=== PATIENT | female | born 1990 | race Two or more races ===

== ENCOUNTER 2020-11-30 21:30 | Emergency (ER) | payer OTHER ==
[~2020-11-30] VITALS: Ht 165.1 cm; Wt 68.0 kg
[2020-11-30 23:41] LABS: Basophils # (auto) 0 10 ^3/uL (0-0.2); Basophils % (auto) 0.2 % (0.0-2.0); Eosinophils # (auto) 0 10 ^3/uL (0-0.8); Eosinophils % (auto) 0.2 % (0.0-7.0); Hematocrit 41.5 % (36.0-46.0); Hemoglobin 13.8 g/dL (12.2-16.2); Lymphocytes # (auto) 1.4 10 ^3/uL (0.4-5.4); Lymphocytes % (auto) 8.1 % (10.0-50.0); Mean Corpuscular Hemoglobin 29.6 pg (28.0-32.0); Mean Corpuscular Hgb Conc. 33.3 g/dL (32.0-36.0); Mean Corpuscular Volume 88.9 fL (80.0-100.0); Monocytes # (auto) 0.8 10 ^3/uL (0-1.3); Monocytes % (auto) 4.9 % (0.0-12.0); Neutrophils # (auto) 14.9 10 ^3/uL (1.6-8.6); Neutrophils % (auto) 86.6 % (37.0-80.0); Platelet Count (auto) 342 10^3/uL (140-450); Red Blood Cells 4.67 10^6/uL (4.0-5.20); Red Cell Distribution Width 13.5 % (11.8-14.3); White Blood Cell 17.2 10^3/uL (4.4-10.8)
[2020-11-30 23:57] LABS: Calcium 8.9 mg/dL (8.5-10.1); Potassium 3.4 mmol/L (3.5-5.1)
[2020-12-01 00:02] LABS: BUN/Creatinine Ratio 14.4; Bilirubin, Total 0.7 mg/dL (0.2-1.0); Total Protein 8.3 g/dL (6.4-8.2)
[2020-12-01 00:05] LABS: Lactic Acid w/Reflex 3.3 mmol/L (0.4-2.0)
[2020-12-01 02:17] LABS: Urine Bacteria FEW /hpf (None Seen); Urine Blood Negative /uL (Negative); Urine Mucus FEW (None Seen); Urine Specific Gravity 1.031 (1.001-1.035); Urine WBC 5 /hpf (0 - 5)
[2020-12-01] MEDS ORDERED: SODIUM CHLORIDE 0.9% 1,000 ML IV ONE (02:30)
[2020-12-01 05:03] LABS: Lactic Acid w/Reflex 2.9 mmol/L (0.4-2.0)
[2020-12-01] MEDS ORDERED: IOHEXOL 300 MG/ML 100ML BOTTLE IJ ONE (05:20)
[2020-12-01] MEDS ORDERED: PANTOPRAZOLE 40 MG/10 ML VIAL INJ IV ONE (07:15)
[2020-12-01 07:56] LABS: Albumin 3.4 g/dL (3.4-5.0); Bilirubin, Direct 0.7 mg/dL (0-0.2)
[2020-12-01 07:59] LABS: Bilirubin, Total 1.1 mg/dL (0.2-1.0)
[2020-12-01] MEDS ORDERED: cefTRIAXone 1GM/50ML D5W 50 ML IV ONE (11:00)
[2020-12-01 16:00] VITALS: BP 118/93
== END 2020-12-01 16:58 | disposition left against medical advice (07) ==
LOC: EDBD 21:30 → ER 21:34
DX: R10.13 Epigastric pain (principal); R11.2 Nausea with vomiting, unspecified
CPT/HCPCS: 36415; 74177; 76705; 80053; 80076; 81001; 82150; 83605; 83690; 84702; 85025; 85049; 96361; 96365; 96375; 99285; C9113; J0696; J7030; Q9967

== ENCOUNTER 2024-10-25 15:27 | Emergency (ER) | payer OTHER ==
[~2024-10-25] VITALS: Ht 177.8 cm; Wt 109.2 kg
[2024-10-25] MEDS ORDERED: LIDOCAINE 1% HCL (LOCAL ANESTH.) INJ 20ML MDV ID ONE (15:45)
[2024-10-25] MEDS ORDERED: IBUP-1455 PO (16:19)
[2024-10-25] MEDS ORDERED: BACIOIN15 OP (16:19)
[2024-10-25] MEDS ORDERED: AUG875T PO (16:19)
--- NOTE | 2024-10-25 16:19 | ED.PDOC ---
History of Present Illness(SKN HPI Comments This patient is a pleasant but obese 33-year-old female who arrives to the ED today for evaluation of a right forearm dog bite sustained approximately 1/2 hour prior to arrival. Patient is a [employer] and was bit by a dog on her route. Patient's tetanus is not up-to-date. Mild bleeding noted at time of evaluation. Vital signs were stable. 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 Family History Family History: Reviewed,noncontributory to illness Social History Smoker: Non-Smoker Alcohol: Occasionally Drugs: Denies Drug Use Lives In: Home Constitutional: denies: chills, diaphoresis, fatigue, fever, malaise, sweats, weakness, others EENTM: denies: blurred vision, double vision, ear bleeding, ear discharge, ear drainage, ear pain, ear ringing, eye pain, eye redness, hearing loss, mouth pain, mouth swelling, nasal discharge, nose bleeding, nose congestion, nose pain, photophobia, tearing, throat pain, throat swelling, voice changes, others Respiratory: denies: cough, hemoptysis, orthopnea, SOB at rest, shortness of breath, SOB with excertion, stridor, wheezing, others Cardiovascular: denies: chest pain, dizzy spells, diaphoresis, Dyspnea on exertion, edema, irregular heart beat, left arm pain, lightheadedness, palpitations, PND, syncope, others Gastrointestinal: denies: abdomen distended, abdominal pain, blood streaked bowels, constipated, diarrhea, dysphagia, difficulty swallowing, hematemesis, melena, nausea, poor appetite, poor fluid intake, rectal bleeding, rectal pain, vomiting, others Genitourinary: denies: abnormal vagina bleeding, burning, dyspareunia, dysuria, flank pain, frequency, hematuria, incontinence, pain, , vagina discharge, urgency, others Neurological: denies: dizziness, fainting, headache, left sided numbness, left sided weakness, numbness, paresthesia, pre-existing deficit, right sided numbness, right sided weakness, seizure, speech problems, tingling, tremors, weakness, others Musculoskeletal: denies: back pain, gout, joint pain, joint swelling, muscle pain, muscle stiffness, neck pain, others Integumetry: reports: wounds (Dog bite to right forearm); denies: bruises, change in color, change in hair/nails, dryness, laceration, lesions, lumps, rash, others Allergic/Immunocompromised: denies: Difficulty Healing, Frequent Infections, Hives, Itching, others Hematologic/Lymphatic: denies: anemia, blood clots, easy bleeding, easy bruising, swollen glands, others Endocrine: denies: excessive hunger, excessive sweating, excessive thirst, excessive urination, flushing, intolerance to cold, intolerance to heat, unexplained weight gain, unexplained weight loss, others Psychiatric: denies: anxiety, bipolar disorder, depression, hopeless, panic disorder, schizophrenia, sleepless, suicidal, others Physical Exam General Appearance: Mild Distress (Moderate distress due to right arm dog bite discomfort.), Obese HEENT: Normal ENT Inspection, Pharynx Normal, TMs Normal Neck: Full Range of Motion, Non-Tender, Normal, Normal Inspection Respiratory: Chest Non-Tender, Lungs Clear, No Accessory Muscle Use, No Respiratory Distress, Normal Breath Sounds Cardiovascular: No Edema, No JVD, No Murmur, No Gallop, Normal Peripheral Pulses, Regular Rate/Rhythm Breast Exam: Deferred Gastrointestinal: No Organomegaly, Non Tender, No Pulsatile Mass, Normal Bowel Sounds, Soft Genitalia: Deferred Pelvic: Deferred Rectal: Deferred Extremities: Other (Patient displays a 5 cm tear laceration to the dorsal aspect of her medial right forearm with a small 5 mm puncture wound noted to inferior aspect. Localized mild erythema and edema. No tendon or muscle involvement.) Neurologic: Alert, No Motor Deficits, Normal Affect, Normal Mood, No Sensory D eficits Cerebellar Function: Normal Reflexes: Normal Skin: Dry, Normal Color, Warm Lymphatic: No Adenopathy Was a procedure done? Was a procedure done?: Yes Sedation Sedation?: No Other Procedure Notes A cc of 1% lidocaine was utilized for local anesthesia. Sterile field was placed. Copious irrigation performed. Nine 4-0 Ethilon sutures were utilized to approximate the wound closure to the dorsal aspect of the medial right forearm. Minimal blood loss. Patient tolerated procedure well. Clean dressing applied. Differential Diagnosis (INTG) Differential Diagnosis: Other (Dog bite, puncture wound) X-Ray, Labs, Meds, VS Comment Patient tolerated procedure well. Advised patient that I approximated the wound to animal laboratory helper in healing. Advised that it is not a full closure and therefore, the wound will require complete healing through secondary intention. Patient should return to ED in 10 days for wound re-evaluation and suture removal. Advised antibiotics as directed until completion. Time of 1ST Reevaluation: 16:17 Reevaluation 1ST: Improved Consultation: PCP Patient Education/Counseling: Diagnosis, Treatment Family Education/Counseling: Diagnosis, Treatment Departure 1 Departure Time of Disposition: 16:17 Impression: Primary Impression: Dog bite of arm Additional Impressions: Arm laceration Puncture wound Disposition: HOME / SELF CARE / HOMELESS Condition: Stable Additional Instructions: Advised patient utilize oral antibiotics as directed until completion as well as daily topical antibiotics and dressing change. Pain medication as needed. Patient should return to ED or primary care provider in 10 days for re- evaluation and probable suture removal. e-Prescriptions Bacitracin Base (Bacitracin) 500 Unit/Gm Oin 500 UNIT OP DAILY, #30 GM Prov: IVAN TREJO [facility] 10/25/24 Ibuprofen Micronized (Ibuprofen) 800 Mg Tab 800 MG PO Q8HP PRN, #15 TAB Prov: IVAN TREJO [facility] 10/25/24 Amoxicillin & Pot Clavulanate (AUGMENTIN TABLET) 875 Mg Tb 875 MG PO BID for 10 Days, #20 TAB Prov: IVAN TREJO [facility] 10/25/24 Discharged With: Self, Friend Critical Care Note Critical Care Time?: No Stability Stability form required: No Heart Score Heart Score: Heart Score Response (Comments) Value History N/A 0 EKG N/A 0 Age N/A 0 Risk Factors N/A 0 Troponin N/A 0 Total 0 IVAN TREJO [facility] October 25, 2024 16:19
[2024-10-25] MEDS: TETANUS-DIPTH-ACEL PERTUSSIS 0.5ML SYR Tdap IM ONE (19:15)
[2024-10-25] MEDS ORDERED: BACDST PO (19:26)
[2024-10-25] MEDS ORDERED: CLIN1CAP70 PO (19:26)
[2024-10-25 19:30] VITALS: BP 122/76; PULSE 81; RESP 17; TEMP 98.1; O2SAT 97
== END 2024-10-25 19:31 | disposition home or self-care (01) ==
LOC: ER 15:27
DX: S51.811A Laceration without foreign body of right forearm, initial encounter (principal); Z88.0 Allergy status to penicillin; W54.0XXA Bitten by dog, initial encounter; Y93.89 Activity, other specified; Y92.89 Other specified places as the place of occurrence of the external cause; Y99.8 Other external cause status
CPT/HCPCS: 12002; 90471; 90715; 99283; J2003